=== PATIENT | male | born 1960 | race Caucasian/White ===

== ENCOUNTER 2019-12-10 08:39 | Outpatient (CLI) | payer OTHER, SELFPAY ==
--- NOTE | ~2019-12-10 | US_ITS ---
EXAMINATION: US right upper quadrant EXAM DATE: 12/10/2019 09:16 INDICATION: Fatty liver. TECHNIQUE: Multiple grayscale and Doppler images of the abdomen right upper quadrant were obtained (mukund y a technologist who performed the scan) and subsequently reviewed. There is no prior study for mari slater. FINDINGS: The pancreatic head and body are normal in appearance. The pancreatic tail is not visualized. There is echogenic liver parenchyma, hepatic steatosis. Several liver lesions which appear anechoic with increased through transmission consistent with cysts, largest measuring 5 cm. There is no evidence o f intrahepatic biliary duct dilation. Portal venous flow was seen in the hepatopedal, normal directi on and has normal Doppler waveform. There is a 6 cm cyst at the superior pole of the right kidney. Common bile duct measures 4 mm, which is normal. The gallbladder wall is normal in thickness, with ex pected amount of distention. No sonographic evidence of pericholecystic fluid. There is no cholelit hiases. Technologist performing exam reports patient did not demonstrate sonographic Greenberg's sign. Please note that this sign is less reliable in patients who have received pain medication. IMPRESSION: 1. Hepatic steatosis. 2. Liver and renal cysts. Reviewed, dictated and finalized at location [facility]
== END 2019-12-10 08:40 | disposition home or self-care (01) ==
PROVIDERS: PCP Family Medicine; Visit Provider Family Medicine
DX: K76.0 Fatty (change of) liver, not elsewhere classified (principal); K76.89 Other specified diseases of liver; N28.1 Cyst of kidney, acquired
CPT/HCPCS: 76705

== ENCOUNTER 2022-03-15 14:11 | Outpatient (RCR) | payer OTHER, SELFPAY ==
[2022-03-15] MEDS: ACETAMINOPHEN 325 MG TABLET 650 MG PO (15:00)
[2022-03-15] MEDS: FAMOTIDINE 20 MG TABLET PO (15:00)
[2022-03-15] MEDS: diphenhydrAMINE HCl CAP 25 MG CAPSULE PO (15:00)
[2022-03-15 15:03] VITALS: BP 135/67; PULSE 79; RESP 18; O2SAT 97
[2022-03-15] MEDS: BEBTELOVIMAB 175 MG/2 ML VIAL IV PUSH (15:23)
[2022-03-15 16:07] VITALS: BP 140/64; PULSE 73; RESP 18; O2SAT 95
== END 2022-03-15 16:00 ==
LOC: AMCINF 14:11
PROVIDERS: PCP Family Medicine; Referring Provider Family Medicine; Visit Provider Internal Medicine Hematology & Oncology
DX: U07.1 COVID-19 (principal); I10 Essential (primary) hypertension; I25.10 Atherosclerotic heart disease of native coronary artery without angina pectoris
CPT/HCPCS: A9270; M0222; Q0222

== ENCOUNTER 2023-02-04 01:17 | Day surgery (SDC) | payer OTHER, SELFPAY ==
[2023-01-22 11:18] VITALS: BMI 59.3
[2023-02-04 08:10] VITALS: BP 141/71; PULSE 64; RESP 19; TEMP 36.2; O2SAT 98; BMI 41.6
[2023-02-04] MEDS: LACTATED RINGERS 1,000 ML 150 ML IV CONT (08:24)
--- NOTE | 2023-02-04 08:42 | PM.HPGS ---
History of Present Illness History of Present Illness Consent: Risks, benefits, and alternatives have been discussed and questions answered. Patient agrees to proceed with procedure. Chief complaint: hx colon polyps Narrative: Luis Miguel Barajas is a 62 year old male Presents for screening colonoscopy. Patient's current weight appetite and bowel movements are normal. Patient denies abdominal pain. He has had no bleeding. Family history noncontributory. Patient previously had colon on polyps identified in 2011. Most recent colonoscopy 2017 was unremarkable. Review of Systems Review of Systems: Review of systems noncontributory. [facility] Past Medical History Medical History (Updated 02/04/23 @ 08:43 by Arsh King MD) Actinic keratoses Acute non-recurrent maxillary sinusitis Appendicitis with perforation (03/22/21) ruptured appendix with peritonitis with surgery 03/22/2021 and 5 days of hospitalization. Body mass index (BMI) 40.0-44.9, adult (04/26/19) Body mass index [BMI] 45.0-49.9, adult Candidiasis Cellulitis of left anterior lower leg Chronic low back pain with left-sided sciatica COVID-19 (03/13/22) positive home test. Vaccinated Encounter for prostate cancer screening PSA 0.78 on 10/02/2022. Fatty liver GGT elevated at 152, AST 28, ALT 33 on 10/02/2022. Hemorrhoids Liver cyst Morbid obesity with BMI of 40.0-44.9, adult Morbid obesity with BMI of 45.0-49.9, adult Palpitation Family History Family History (Updated 04/05/19 @ 09:36 by DOCTOR UNKNOWN) Father Diabetes mellitus, Onset Age: 69 Acute myocardial infarction Sibling Diabetes mellitus Patient's sister is in good health Family history of chronic obstructive pulmonary disease Mother Patient's mother is , Onset Age: 87 Family history of dementia Grandparent Family history of cardiovascular disease, Onset Age: 73 Acute myocardial infarction, Onset Age: 75 Malignant neoplasm of prostate Family history of malignant neoplasm of bone, Onset Age: 83 Social History Social History (Updated 10/15/22 @ 15:11 by Keena Bello MA) Smoking packs per day: 1 Smoking cigarettes per day: 20.0 Years smoked: 15 Smoking pack-years: 15.00 Smoking status: Former smoker Tobacco type: cigarettes Smoking end date: 11/03/87 Alcohol intake: current Alcohol use details: 2 per month Substance use: never Substance use type: does not use Lack of Transportation: No Lack of Food: Never True Current Housing: I Have Housing Concerned About Future Housing: No Difficulty Paying Gas/Electric Bills: No Difficulty Paying for Meds: No Currently Unemployed: No Education: Trade/Vocational Certificate Difficulty w/ Childcare or Family Care: No Living arrangements: with family Spiritual care concerns: No Meds Home Medications and Allergies Home Medications Medication Instructions Recorded Confirmed Type ascorbic acid (vitamin C) 1,000 mg 1 gm PO DAILY 10/04/19 01/22/23 History tablet carvedilol 25 mg tablet 25 mg PO Q12H 10/04/19 02/04/23 History cyanocobalamin (vitamin B-12) 1,000 mcg PO DAILY 10/04/19 01/22/23 History 1,000 mcg tablet (Vitamin B-12) diphenhydramine HCl 25 mg capsule 50 mg PO Q6H PRN Itching 10/04/19 02/04/23 History (Benadryl) multivitamin,[id number] 1 tablet PO DAILY 10/04/19 01/22/23 History (Complete Multivitamin tablet) aspirin 81 mg tablet,delayed 81 mg PO BID 11/29/19 01/22/23 History release (Adult Low Dose Aspirin) alirocumab 150 mg/mL subcutaneous 150 mg subcut . Q 2 weeks 08/08/20 01/22/23 History pen injector (Praluent Pen) amlodipine 10 mg tablet 10 mg PO DAILY 09/20/21 01/22/23 History magnesium oxide 1,200 mg PO DAILY 04/03/22 01/22/23 History allopurinol 100 mg tablet 100 mg PO DAILY #90 tabs 04/12/22 01/22/23 Rx fenofibrate nanocrystallized 145 145 mg PO DAILY #90 tabs 04/12/22 01/22/23 Rx mg tablet icosapent ethyl 1
--- NOTE | 2023-02-04 08:43 | P.PNAN_ITS ---
Anes - Initial Pre Proc Eval Procedure: Operation Date: 02/04/23 09:30 Proposed Procedures p Colonoscopy - Arsh King MD Date/Time: 02/04/23 08:43 Surgeon: Arsh King MD Pre Op Diagnosis: hx colon polyps Patient Data Age: 62 Gender: M Height: 1.88 m Weight: 147.2 kg Last Vital Signs Temp 97.1 F L 02/04/23 08:10 Pulse 64 02/04/23 08:10 Resp 19 02/04/23 08:10 BP 141/71 H 02/04/23 08:10 Pulse Ox 98 02/04/23 08:10 O2 Del Method Room Air 02/04/23 08:10 Allergies Allergy/AdvReac Type Severity Reaction Status Date / Time cefdinir Allergy Severe Difficulty Verified 02/04/23 08:09 Breathing Home Medications Medication Instructions Recorded Confirmed Type ascorbic acid (vitamin C) 1,000 mg 1 gm PO DAILY 10/04/19 01/22/23 History tablet carvedilol 25 mg tablet 25 mg PO Q12H 10/04/19 02/04/23 History cyanocobalamin (vitamin B-12) 1,000 mcg PO DAILY 10/04/19 01/22/23 History 1,000 mcg tablet (Vitamin B-12) diphenhydramine HCl 25 mg capsule 50 mg PO Q6H PRN Itching 10/04/19 02/04/23 History (Benadryl) multivitamin,[id number] 1 tablet PO DAILY 10/04/19 01/22/23 History (Complete Multivitamin tablet) aspirin 81 mg tablet,delayed 81 mg PO BID 11/29/19 01/22/23 History release (Adult Low Dose Aspirin) alirocumab 150 mg/mL subcutaneous 150 mg subcut . Q 2 weeks 08/08/20 01/22/23 History pen injector (Praluent Pen) amlodipine 10 mg tablet 10 mg PO DAILY 09/20/21 01/22/23 History magnesium oxide 1,200 mg PO DAILY 04/03/22 01/22/23 History allopurinol 100 mg tablet 100 mg PO DAILY #90 tabs 04/12/22 01/22/23 Rx fenofibrate nanocrystallized 145 145 mg PO DAILY #90 tabs 04/12/22 01/22/23 Rx mg tablet icosapent ethyl 1 gram capsule 2 g PO BID #360 caps 05/07/22 01/22/23 Rx (Vascepa) lisinopril 40 mg tablet 40 mg PO DAILY #90 tabs 11/22/22 01/22/23 Rx Patient hx anesthesia problems: none Family hx anesthesia problems: none Results Review: All pre-operative results and documents have been reviewed as part of the pre- operative evaluation. [facility] Past Medical History Medical History (Updated 02/04/23 @ 08:43 by Arsh King MD) Actinic keratoses Acute non-recurrent maxillary sinusitis Appendicitis with perforation (03/22/21) ruptured appendix with peritonitis with surgery 03/22/2021 and 5 days of hospitalization. Body mass index (BMI) 40.0-44.9, adult (04/26/19) Body mass index [BMI] 45.0-49.9, adult Candidiasis Cellulitis of left anterior lower leg Chronic low back pain with left-sided sciatica COVID-19 (03/13/22) positive home test. Vaccinated Encounter for prostate cancer screening PSA 0.78 on 10/02/2022. Fatty liver GGT elevated at 152, AST 28, ALT 33 on 10/02/2022. Hemorrhoids Liver cyst Morbid obesity with BMI of 40.0-44.9, adult Morbid obesity with BMI of 45.0-49.9, adult Palpitation Family History Family History (Updated 04/05/19 @ 09:36 by DOCTOR UNKNOWN) Father Diabetes mellitus, Onset Age: 69 Acute myocardial infarction Sibling Diabetes mellitus Patient's sister is in good health Family history of chronic obstructive pulmonary disease Mother Patient'
[2023-02-04 09:32] VITALS: BP 96/62; PULSE 63; RESP 15; O2SAT 93
[2023-02-04 09:42] VITALS: BP 122/68; PULSE 62; RESP 14; O2SAT 97
[2023-02-04 09:52] VITALS: BP 121/67; PULSE 61; RESP 25; O2SAT 96
== END 2023-02-04 10:04 | disposition home or self-care (01) ==
PROVIDERS: PCP Family Medicine; Visit Provider Internal Medicine Gastroenterology
PROC: 0DJD8ZZ Inspection of Lower Intestinal Tract, Via Natural or Artificial Opening Endoscopic (ICD-10-PCS; CPT 45378; principal; 2023-02-04 09:30)
DX: Z12.11 Encounter for screening for malignant neoplasm of colon (principal); K63.5 Polyp of colon; K64.8 Other hemorrhoids; K57.30 Diverticulosis of large intestine without perforation or abscess without bleeding; K76.0 Fatty (change of) liver, not elsewhere classified; Z79.82 Long term (current) use of aspirin; E66.01 Morbid (severe) obesity due to excess calories; Z68.41 Body mass index [BMI] 40.0-44.9, adult; Z87.891 Personal history of nicotine dependence
CPT/HCPCS: 45385; 88305; J2704; J7120